=== PATIENT | female | born 1940 | race Caucasian/White ===

== ENCOUNTER → 2017-09-11 | Outpatient (CLI) | payer MEDICARE, BC ==
--- NOTE | 2017-09-11 09:50 | CT ---
EXAMINATION TYPE: CT soft tissue neck wo con DATE OF EXAM: 09/11/2017 HISTORY: Patient complains of right ear pain. COMPARISON: NONE CT DLP: 416.6 mGycm. Automated Exposure Control for Dose Reduction was Utilized. TECHNIQUE: CT scan of the neck is performed without contrast, coronal and sagittal reformatted image s are reviewed. FINDINGS: Airway: No gross abnormality seen. Parotid/submandibular glands: No gross abnormality seen. Carotid/Vascular Structures: Carotid artery calcifications are present. Atheromatous change in the tr ansverse aorta and super aortic branch vessels. Osseous Structures: Degenerative disc changes are present in the cervical spine. Evidence of prior de ntal disease. Mastoid air cells are well aerated. Temporomandibular joints are intact. There is no er osion of the scutum. Auditory ossicles show symmetric appearance. External auditory canals are patent . Orbits show symmetric appearance. Other: Lung apices are unremarkable IMPRESSION: No significant abnormality is seen to account for patient's symptoms, additional finding s above.
== END | disposition home or self-care (01) ==
LOC: RADCTMAIN 08:31
PROVIDERS: ATTEND Family Medicine
DX: H92.01 Otalgia, right ear (principal)
CPT/HCPCS: 70490

== ENCOUNTER → 2019-08-09 | Outpatient (CLI) | payer MEDICARE, BC ==
--- NOTE | 2019-08-09 16:49 | XR ---
EXAMINATION TYPE: XR chest 2V DATE OF EXAM: 08/09/2019 COMPARISON: NONE HISTORY: Chest pain TECHNIQUE: Frontal and lateral views of the chest are obtained. FINDINGS: There is no focal air space opacity, pleural effusion, or pneumothorax seen. The cardiac silhouette size is within normal limits. The osseous structures are intact. Dense vascular calcific ation suspected within the distribution of the splenic artery. Aorta is dense. Patient is rotated. Th ere is thoracic spondylosis. Small focus of increased attenuation noted at the right costophrenic ang le level. IMPRESSION: There may be some minimal subsegmental atelectatic change at the right costophrenic angl e. Bone scan may be of benefit to assess for occult rib fracture or abnormality.
== END | disposition home or self-care (01) ==
LOC: RADXRMAIN 12:11
PROVIDERS: ATTEND Physician Assistant
DX: J98.11 Atelectasis (principal)
CPT/HCPCS: 71046

== ENCOUNTER → 2020-06-07 | Outpatient (CLI) | payer MEDICARE, BC ==
--- NOTE | 2020-06-07 11:13 | US ---
EXAMINATION TYPE: US carotid duplex BILAT DATE OF EXAM: 06/07/2020 COMPARISON: US 2016 CLINICAL HISTORY: R00.2 PALPITATIONS,R01.1 CARDIAC MURMURS. Bruit EXAM MEASUREMENTS: RIGHT: Peak Systolic Velocity (PSV) cm/sec ----- Right CCA: 62.5 ----- Right ICA: 60.8 ----- Right ECA: 105.0 ICA/CCA ratio: 1.0 RIGHT: End Diastole cm/sec ----- Right CCA: 9.6 ----- Right ICA: 10.4 ----- Right ECA: 6.3 LEFT: Peak Systolic Velocity (PSV) cm/sec ----- Left CCA: 60.6 ----- Left ICA: 70.2 ----- Left ECA: 84.9 ICA/CCA ratio: 1.2 LEFT: End Diastole cm/sec ----- Left CCA: 8.6 ----- Left ICA: 12.6 ----- Left ECA: 0.0 VERTEBRALS (direction of flow): Right Vertebral: Antegrade Left Vertebral: Antegrade Rhythm: Normal Bilateral intimal thickening, plaque bilateral bulb, no elevated velocities, no significant stenosis. Atheromatous plaquing with posterior shadowing is present compatible some calcification. IMPRESSION: 1. Atheromatous plaquing without significant flow-limiting stenosis. Criteria for Assigning % of Stenosis / Diameter reduction (Estimation based on the indirect measurements of the internal carotid artery velocities (ICA PSV). 1. Normal (no stenosis)=ICA PSV < 125 cm/s: ratio < 2.0: ICA EDV<40 cm/s. 2. Less than 50% stenosis=ICA PSV < 125 cm/s: ratio < 2.0: ICA EDV<40 cm/s. 3. 50 to 69% stenosis=ICA PSV of 125 to 230 cm/s: ration 2.0 ? 4.0: ICA EDV 40-100 cm/s. 4. Greater than 70% stenosis to near occlusion= ICA PSV > 230 cm/s: ratio > 4.0: ICA EDV > 100 cm/s. 5. Near occlusion= ICA PSV velocities may be low or undetectable: variable ratio and ICA EDV. 6. Total occlusion=unable to detect flow.
--- NOTE | 2020-06-08 18:47 | ECHOF ---
Referral Reason:R09.89 carotid bruit, R01.1 murmur MEASUREMENTS -------- HEIGHT: 132.1 cm WEIGHT: 81.6 kg BP: RVIDd: 3.7 cm (< 3.3) IVSd: 1.4 cm (0.6 - 1.1) LVIDd: 4.4 cm (3.9 - 5.3) LVPWd: 1.2 cm (0.6 - 1.1) IVSs: 1.6 cm LVIDs: 3.5 cm LVPWs: 1.6 cm LA Diam: 4.4 cm (2.7 - 3.8) LAESV Index (A-L): 30.94 ml/m Ao Diam: 2.8 cm (2.0 - 3.7) AV Cusp: 0.9 cm (1.5 - 2.6) MV EXCURSION: 18.438 mm (> 18.000) MV EF SLOPE: 61 mm/s (70 - 150) EPSS: 0.6 cm AV maxP.98 mmHg AV meanP.41 mmHg AR PHT: 499 ms RAP: 5.00 mmHg RVSP: 19.39 mmHg FINDINGS -------- Sinus rhythm. This was a technically adequate study. The left ventricular size is normal. There is mild concentric left ventricular hypertrophy. Overa ll left ventricular systolic function is low-normal with, an EF between 50 - 55 %. The right ventricle is normal in size. The left atrial size is normal. Normal LA size by volume 22+/-6 ml/m2. The right atrial size is normal. There is mwxq-ey-ddltshsu aortic regurgitation. There is ndvjoauj-xe-aewsjx aortic stenosis present . Peak/mean gradient across the Aortic Valve is 55.98mmHg / 31.41mmHg. Mild mitral annular calcification present. Mild mitral regurgitation is present. Mild tricuspid regurgitation present. Right ventricular systolic pressure is normal at < 35 mmHg. There is no pulmonic regurgitation present. The aortic root size is normal. There is no pericardial effusion. CONCLUSIONS -------- 1. The left ventricular size is normal. 2. There is mild concentric left ventricular hypertrophy. 3. Overall left ventricular systolic function is low-normal with, an EF between 50 - 55 %. 4. The right ventricle is normal in size. 5. The left atrial size is normal. 6. Normal LA size by volume 22+/-6 ml/m2. 7. The right atrial size is normal. 8. There is vcno-nu-nwbmglhn aortic regurgitation. 9. There is tmtkcjpe-sh-frmuzn aortic stenosis present. 10. Peak/mean gradient across the Aortic Valve is 55.98mmHg / 31.41mmHg. 11. Mild mitral annular calcification present. 12. Mild mitral regurgitation is present. 13. Mild tricuspid regurgitation present. 14. There is no pulmonic regurgitation present. 15. There is no pericardial effusion. RUG SETTER VELVET: Sugey Kruse RDCS
--- NOTE | 2020-06-12 12:57 | HM ---
HOLTER MONITOR REPORT HOLTER MONITOR: Patient was monitored for 48 hours. Baseline rhythm is a sinus mechanism with normal conduction. The average rate was 60 beats per minute, minimum 46, maximum 89 beats per minute. Ventricular ectopic activity was present in the form of rare single PVCs. Supraventricular ectopic activity was present with rare single PACs. Symptoms of palpitation correlated with sinus mechanism. One episode of second-degree AV block, Mobitz type 1 was noted with no significant pauses. CONCLUSION: 1. Sinus mechanism baseline rhythm. 2. Rare supraventricular ectopic activity. 3. Symptoms did not correlate with any dysrhythmia. MMODL / IJN: [id number] /
== END | disposition home or self-care (01) ==
LOC: RADUSWWP 10:04
PROVIDERS: ATTEND Family Medicine
DX: I08.3 Combined rheumatic disorders of mitral, aortic and tricuspid valves (principal); I67.2 Cerebral atherosclerosis
CPT/HCPCS: 93225; 93226; 93306; 93880

== ENCOUNTER 2023-03-09 10:14 | Day surgery (SDC) | payer MEDICARE, BC ==
[~2023-03-09 10:14] MED LIST: ALPRAZolam 0.25 MG TAB PO PRN; ALPRAZolam 0.5 MG TAB PO PRN; ASPIRIN 325 MG TAB PO STA; NITROGLYCERIN SL TABS 0.4 MG TAB SUBLINGUAL PRN; SODIUM CHLORIDE 0.9% 1,000 ML in EMPTY BAG 1 BAG IV SCH
[2023-03-09] MEDS ORDERED: SODIUM CHLORIDE 0.9% 1,000 ML IV ONE (10:25)
[2023-03-09 10:38] VITALS: RESP 16; TEMP 97.4
[2023-03-09 10:48] LABS: Basophils # (A) 0.1 k/uL (0-0.2); Basophils % (A) 0 %; Eosinophils # (A) 0.3 k/uL (0-0.7); Eosinophils % (A) 2 %; HCT 47.6 % (34.0-46.0); HGB 15.2 gm/dL (11.4-16.0); Lymphocytes # (A) 3.9 k/uL (1.0-4.8); Lymphocytes % (A) 30 %; MCH 29.5 pg (25.0-35.0); MCV 92.3 fL (80.0-100.0); Mean Platelet Volume 7.4; Monocytes # (A) 0.7 k/uL (0-1.0); Monocytes % (A) 5 %; Neutrophils # (A) 7.8 k/uL (1.3-7.7); Neutrophils % (A) 61 %; Platelet Count 382 k/uL (150-450); RBC 5.15 m/uL (3.80-5.40); RDW 13.1 % (11.5-15.5); WBC 12.8 k/uL (3.8-10.6)
[2023-03-09 11:10] LABS: African American GFR (CKD) 83 (>60 ml/min/1.73 sqM); Anion Gap 10 mmol/L; Blood Urea Nitrogen 15 mg/dL (7-17); Calcium 9.8 mg/dL (8.4-10.2); Carbon Dioxide 25 mmol/L (22-30); Chloride 105 mmol/L (98-107); Glucose 126 mg/dL (74-99); Non-African American GFR(CKD) 72 (>60 ml/min/1.73 sqM); Potassium 4.7 mmol/L (3.5-5.1); Sodium 140 mmol/L (137-145)
[2023-03-09] MEDS ORDERED: VERAPAMIL 2.5 MG/ML 2 ML AMP ONE (12:04)
[2023-03-09] MEDS ORDERED: HEPARIN SODIUM 1,000 UN/ML (10ML VL) ONE (12:19)
[2023-03-09] MEDS ORDERED: fentaNYL (PF) 50 MCG/ML 2 ML AMP ONE (12:21)
[2023-03-09] MEDS: BENZOCAINE SPRAY 1 CAN MUCOUS MEM ONE ×2 (12:35→12:42)
[2023-03-09] MEDS ORDERED: methylPREDNISolone SOD SUCCI 125 MG/2 ML VIAL ONE (12:38)
[2023-03-09] MEDS ORDERED: MIDAZOLAM 2 MG/2 ML VIAL IVP ONE (12:42)
[2023-03-09] MEDS ORDERED: methylPREDNISolone SOD SUCCI 125 MG/2 ML VIAL IVP ONE (12:42)
[2023-03-09] MEDS: MIDAZOLAM 2 MG/2 ML VIAL IVP ONE ×2 (12:44→12:45)
[2023-03-09] MEDS ORDERED: fentaNYL (PF) 50 MCG/1 ML VIAL IVP ONE (12:44)
--- NOTE | 2023-03-09 12:59 | P.PCN ---
Date of Procedure: 03/09/23 Operative Findings: TRANSESOPHAGEAL ECHOCARDIOGRAM TRANSITIONS MANAGER: SHREE BA MD, RPVI INDICATION: Aortic stenosis SEDATION: Conscious sedation COMPLICATION: None LEVEL OF SEDATION Moderate sedation length of 12 minutes PROCEDURE DESCRIPTION: After obtaining an informed consent, the patient was brought to transesophageal echocardiogram room. Pulse oximetry and heart monitors were attached to the patient. The patient throat was sprayed using lidocaine. The patient was turned into left lateral position. After that a bite guard was placed. After an appropriate conscious sedation was initiated, the transesophageal echocardiogram was advanced through a bite guard into the mid esophagus. A 2-D echocardiogram images, color Doppler images, continuous wave images, pulse-wave images, of various cardiac structure were performed. After that the transesophageal echocardiogram probe was advanced into the stomach and fixed to obtain transgastric view was. The probe was brought into the mid esophagus. Inter-atrial septum was interrogated using 2D images, color Doppler images, and then contrast study. After that transesophageal echocardiogram was withdrawn out and upon withdrawing the descending thoracic aorta all the way up to the arch was evaluated. FINDING: The left ventricular dimension and systolic function appeared to be within normal limits was EF of 60% with mild LVH. Right ventricle appeared to be of normal size and function the left atrium and right atrium are mildly dilated. Left atrial appendage appeared to be free from any thrombus. The aortic valve appears to be trileaflet valve appeared to be thickened and calcified with evidence of severe aortic stenosis and mean gradient of 43 mmHg and peak systolic velocity of more than 4 m/s. There is bhvf-rg-nkyptvwg aortic insufficiency. The mitral valve appeared to have evidence of cfyb-af-hycrkiwr mitral insufficiency. No evidence of pericardial effusion. Intact interatrial septum was seen. CONCLUSION: 1. Aortic sclerosis with severe stenosis and mean gradient of 43 mmHg and peak systolic velocity of more than 4 m/s. The aortic valve is trileaflet valve 2. Tyhg-gi-bhthbfzp mitral regurgitation with a central jet likely secondary to aortic stenosis 3. Preserved biventricular dimension and systolic function. Mild LVH was identified 4. Normal tricuspid valve and pulmonic valve 5. Intact interatrial septum and intact left atrial appendage 6. No evidence of pericardial effusion
[2023-03-09] MEDS ORDERED: IV FLUID CONTINUATION 1,000 ML IV ONE (13:00)
[2023-03-09] MEDS ORDERED: LIDOCAINE 1% INJ 10MG/ML (5 ML VIAL-PF) SQ ONE (13:00)
[2023-03-09] MEDS ORDERED: VERAPAMIL SYRINGE (5 MG/10 ML) INTRAARTER ONE (13:02)
[2023-03-09] MEDS ORDERED: HEPARIN SODIUM 1,000 UN/ML (10ML VL) IV ONE (13:06)
[2023-03-09] MEDS ORDERED: IOPAMIDOL-370 100ML BTL INJ ONE (13:08)
[2023-03-09] MEDS ORDERED: RX INFO: IV CONTRAST WAS GIVEN 1 EACH MISC MISCELLANE PRN (13:09)
--- NOTE | 2023-03-09 13:13 | P.PCN ---
Date of Procedure: 03/09/23 Operative Findings: CARDIAC CATHETERIZATION PERFORMING PHYSICIAN: Ras Crenshaw MD, RPVI PROCEDURE PERFORMED: 1. Selective right and left coronary angiogram INDICATION: Aortic stenosis COMPLICATION: None APPROACH: Right radial artery LEVEL OF SEDATION: Moderate with a sedation length of 10 minutes PROCEDURE DESCRIPTION: After obtaining an informed consent, the patient was brought to cardiac corn lab technician. Local anesthesia was performed using lidocaine subcutaneously. The right radial artery was cannulated using Seldinger technique, the guidewire passed easily, following that we advanced a 5-[place] sheath dilator assembly, the wire and dilator were removed and sheath was flushed. Following that, 2 mg of verapamil along with 5000 unit heparin were given. Selective right and left coronary angiogram using a 6-[place] JR4 and JL 3.5 catheters. The procedure was completed there was no complication. SELECTIVE CORONARY ANGIOGRAM: The right coronary artery: Moderate caliber vessel nondominant vessel appears to be angiographically normal Left main: Angiographically normal. Bifurcates into an LCx and LAD The left circumflex: Large caliber vessel a dominant vessel. Its angiographically normal. Gives rises into an OM1 which appeared to be normal and distally bifurcates into PDA and PLV branches both appeared to be angiographically normal The left anterior descending artery: The LAD has mild to moderate disease in the proximal portion. The mid and distal portion appears to be angiographically normal CONCLUSION: 1. Wayd-nc-wgtyytbb disease involving the proximal LAD POSTPROCEDURE MANAGEMENT: Scheduled the patient to be seen at the valve clinic
[2023-03-09] MEDS ORDERED: SODIUM CHLORIDE 0.9% 1,000 ML IV SCH (13:15)
[2023-03-09 17:21] VITALS: BP 131/64; PULSE 57
== END 2023-03-09 17:18 | disposition home or self-care (01) ==
LOC: CATHCVL 10:14
PROVIDERS: ATTEND Internal Medicine Interventional Cardiology
DX: I08.0 Rheumatic disorders of both mitral and aortic valves (principal); I70.0 Atherosclerosis of aorta; I25.10 Atherosclerotic heart disease of native coronary artery without angina pectoris; I10 Essential (primary) hypertension; E78.5 Hyperlipidemia, unspecified; I71.40 Abdominal aortic aneurysm, without rupture, unspecified; E66.9 Obesity, unspecified; M19.90 Unspecified osteoarthritis, unspecified site; Z82.49 Family history of ischemic heart disease and other diseases of the circulatory system; Z79.82 Long term (current) use of aspirin; Z79.899 Other long term (current) drug therapy; Z68.35 Body mass index [BMI] 35.0-35.9, adult; Z88.0 Allergy status to penicillin; Z88.8 Allergy status to other drugs, medicaments and biological substances
CPT/HCPCS: 93454; 99152; 93312; 93320; 93325; 80048; 85025; J2250; J2930; J2001; J1644; Q9967; J3010

== ENCOUNTER → 2024-07-21 | Outpatient (CLI) | payer MEDICARE ==
[2024-07-21 10:19] LABS: African American GFR (CKD) 80 (>60 ml/min/1.73 sqM); Blood Urea Nitrogen 22 mg/dL (7-17); Non-African American GFR(CKD) 69 (>60 ml/min/1.73 sqM)
--- NOTE | 2024-07-21 13:28 | CT ---
EXAMINATION TYPE: CT TAVR Planning DATE OF EXAM: 07/21/2024 COMPARISON: Carotid ultrasound 06/07/2020, chest radiograph 08/09/2019 CLINICAL INDICATION: Female, 84 years old with history of I35.0 NONRHEUMATIC AORTIC (VALVE) STENOSIS; Non rheumatic aortic valve stenosis TECHNIQUE: CT scan of the Neck, chest, abdomen and pelvis is performed with IV contrast; Helical imaging obtaine d through the chest, abdomen and pelvis during arterial phase dynamic administration of radiographic contrast intravenously. CONTRAST: 125 mL of Isovue 370. CT DLP: 1885.90 mGycm, Automated exposure control for dose reduction was used. FINDINGS: See report from [facility] regarding preprocedural planning HEART AND PERICARDIUM: The heart is mildly enlarged. There is no pericardial effusion. AV Calcification Severity: Mild to moderate ARTERIAL VASCULATURE: The aorta demonstrate a normal course and caliber. Mild atherosclerotic calcification of the aorta an d its branches. There is no evidence of aortic dissection, aneurysm or acute aortic injury. Great arc h vessels patent and normal in course and caliber. PULMONARY ARTERIAL VASCULATURE: Normal caliber., No evidence for central filling defect. NECK AND THYROID: No significant findings. The carotid bifurcations are patent. CHEST: LUNGS: No acute area of infiltrative or consolidative change. Subsegmental atelectasis is present in the lung bases. LARGE AIRWAYS: Central airways are patent. PLEURAL: No pleural effusion or thickening. No pneumothorax. MEDIASTINUM AND SANJU: No mediastinal or hilar lymphadenopathy or soft tissue mass. SOFT TISSUES/LYMPH NODES: Unremarkable.Normal. MUSCULOSKELETAL: No acute osseous abnormalities ABDOMEN/PELVIS: Please note arterial phase of the imaging limits detailed evaluation of the solid abdominal organs. ABDOMEN LIVER: Subcentimeter hypodense lesion within the right hepatic dome which is too small to characteriz e but likely represents a cyst or hemangioma. GALLBLADDER AND BILE DUCTS: Unremarkable. PANCREAS: Lipomatous pseudohypertrophy changes. SPLEEN: Unremarkable. ADRENAL GLANDS: Unremarkable. KIDNEYS AND URETERS: No evidence of hydronephrosis. The kidneys enhance symmetrically. Contrast is de monstrated within both collecting systems which limits evaluation for renal calculi. Retroaortic left renal vein. Right renal posterior exophytic 1.7 cm cyst. PELVIS BLADDER: There are distended, limiting evaluation. REPRODUCTIVE: The uterus is surgically absent. ABDOMEN & PELVIS STOMACH AND BOWEL: Stomach and duodenum are unremarkableno focal bowel wall thickening or surrounding inflammatory changes. The appendix is within normal limits. No evidence of bowel obstruction. PERITONEUM/RETROPERITONEUM: No evidence of pneumoperitoneum or free fluid. VASCULATURE: No evidence of aortic aneurysm. Mild atherosclerotic calcification of the aorta and its branches. There is 3 splenic artery aneurysms that are peripherally calcified with the more proximal one measuring 1.1 cm, the mid one measuring 1.1 cm, and the more distal one measuring 0.6 cm. These a ppear to entirely enhance. MUSCULOSKELETAL: No acute osseous abnormalities LYMPH NODES: No gross evidence for lymphadenopathy. SOFT TISSUE/ABDOMINAL WALL: Unremarkable Other Lines/Tubes/Devices/Hardware: None IMPRESSION: 1. Mild to moderate calcifications of the aortic valve. 2. No acute process. 3. 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 4. See report from [employer] regarding preprocedural planning [facility], , 07/21/2024 1:25 PM
== END | disposition home or self-care (01) ==
LOC: RADCTMAIN 09:22
PROVIDERS: ATTEND Thoracic Surgery (Cardiothoracic Vascular Surgery)
DX: I35.1 Nonrheumatic aortic (valve) insufficiency (principal); I70.0 Atherosclerosis of aorta; J98.11 Atelectasis
CPT/HCPCS: 82565; 84520; 71275; 36415; 74174; Q9967